=== PATIENT | female | born 1975 | race Asian ===

== ENCOUNTER 2016-12-15 10:29 | Emergency (ER) | payer OTHER ==
[~2016-12-15] VITALS: Ht 154.9 cm; Wt 49.0 kg
[~2016-12-15 10:29] MED LIST: FERR324T4 OR; OXYC-360 PO; PRENTAB72 PO; SENN1TAB11 PO
[2016-12-15 10:31] VITALS: BP 122/68; PULSE 61; RESP 20; TEMP 97.8; O2SAT 99
[2016-12-15] MEDS ORDERED: VITA200013 (11:25)
[2016-12-15 11:28] VITALS: BP 136/79; PULSE 54; RESP 18; O2SAT 100
[2016-12-15] MEDS ORDERED: ACETAMINOPHEN 325 MG TAB PO ONE (11:30)
--- NOTE | 2016-12-15 11:31 | PD ---
HPI . Adverse medication reaction Chief Complaint: Allergic/Adverse Reaction Time Seen by Provider: 11:19 Travel History International Travel<30 days: No Contact w/Intl Traveler<30days: No Traveled to known affect area: No History of Present Illness HPI The patient is brought in by her son with the chief complaint of a possible adverse reaction to medication. She had a mole removed by a landscape foreman earlier today. The area was locally anesthetized. We do not know the exact medication used for anesthesia. Nonetheless, when she got home, she was pale and shaky and nauseous and stated that she could not breathe. Her son subsequently brought her here for treatment. The patient states that she is better now but has a headache. She describes a bitemporal and occipital headache. [facility] Past Medical History Medical History: Denies Significant Hx ?: Unknown LMP: 12/11/2016 Past Surgical History Section: Yes (twice ) Social History Alcohol Use: No Tobacco Use: No Substance Use: No Allergies-Medications (Allergen,Severity, Reaction): Coded Allergies: ibuprofen (Unverified Allergy, Unknown, 12/15/16) Reported Meds & Prescriptions Reported Meds & Active Scripts Active Reported Vitamin D (Cholecalciferol) 2,000 Unit Cap Review of Systems Except as stated in HPI: all other systems reviewed are Neg General / Constitutional: Positive: Other (pale) HENT: Positive: Headaches Respiratory: Positive: Shortness of Breath Gastrointestinal: Positive: Nausea, Vomiting Neurologic: Positive: Tremor Physical Exam Narrative GENERAL: Awake and alert and in no acute distress. SKIN: warm/dry. HEAD: Normocephalic. Atraumatic. EYES: Pupils equal and round. No scleral icterus. No injection or drainage. ENT: No nasal bleeding or discharge. Mucous membranes pink and moist. NECK: Trachea midline. Full range of motion without pain.. CARDIOVASCULAR: Regular rate and rhythm. Heart sounds are normal. RESPIRATORY: No accessory muscle use. Clear to auscultation. Breath sounds equal bilaterally. GASTROINTESTINAL: Abdomen soft. Nontender. Bowel sounds present. Nondistended. MUSCULOSKELETAL: No obvious deformities. NEUROLOGICAL: Awake and alert. No obvious cranial nerve deficits. Motor grossly within normal limits. Normal speech. PSYCHIATRIC: Appropriate mood and affect; insight and judgment normal. Data Data Last Documented VS Vital Signs Date Time Temp Pulse Resp B/P (MAP) Pulse Ox O2 Delivery O2 Flow Rate FiO2 12/15/16 11:28 54 18 136/79 (98) 100 Room Air 12/15/16 10:31 97.8 Orders Orders Acetaminophen (Tylenol) (12/15/16 11:30) [facility] Medical Decision Making Medical Screen Exam Complete: Yes Emergency Medical Condition: Yes Differential Diagnosis Differential diagnosis of dyspnea includes but is not limited to congestive heart failure, pneumonia, wheezing, pneumothorax, pulmonary embolism Narrative Course This patient presents with what sounds like a vasovagal reaction. She became pale, shaky, dyspneic and nauseous following local anesthesia. She feels better now. She has a residual headache. She is allergic to Advil which causes a rash. I will treat her headache with Tylenol. The patient has been observed here for over an hour. She is doing well. She is resting comfortably. She is only complaining with a mild headache. She will be discharged home. Diagnosis Primary Impression: Vasovagal reaction Patient Instructions: General Instructions, Near Syncope (DC) Disposition: 01 DISCHARGE HOME Condition: Stable Aide Delgado MD Dec 15, 2016 11:31
== END 2016-12-15 13:49 | disposition home or self-care (01) ==
LOC: NEPE 10:29
DX: R55 Syncope and collapse (principal); R51 Headache; R06.02 Shortness of breath; R11.2 Nausea with vomiting, unspecified
CPT/HCPCS: 99281